=== PATIENT | female | born 1995 ===

== ENCOUNTER 2017-04-24 18:17 | Emergency (ER) | payer SELFPAY ==
[2017-04-24 18:37] VITALS: O2SAT 100
[2017-04-24] MEDS ORDERED: DiphenhydrAMINE 50 mg/ml Inj IVP STA (18:54)
[2017-04-24] MEDS ORDERED: Sodium Chloride 0.9% 500 ML IV STA (18:55)
--- NOTE | 2017-04-24 18:59 | ED PDOC ---
Arrival/HPI - General Chief Complaint: Allergic Reaction Time Seen by Provider: 04/24/17 18:49 Historian: Patient - History of Present Illness Narrative History of Present Illness (Text): 04/24/17 18:55 21 year old female, no pmh, nkda, complaining of itching rash on the whole body after eating cumen about 1.5 hours ago. Pt. stated that she had mild itching rash with cumen before but never pay attention to it. Pt. had the cumen again tonight, started to have itching rash on the body and chest, no numbness or tingling, no fever or chills, no headache or night sweat, no dizziness, no palpitation, no other medical or psychological complaints. Past Medical History - Provider Review Nursing Documentation Reviewed: Yes - Infectious Disease Hx of Infectious Diseases: None - Psychiatric Hx Substance Use: No - Anesthesia Hx Anesthesia: No Family/Social History - Physician Review Nursing Documentation Reviewed: Yes Family/Social History: Unknown Family HX Smoking Status: Never Smoked Hx Alcohol Use: No Hx Substance Use: No Allergies/Home Meds Allergies/Adverse Reactions: Allergies No Known Allergies Allergy (Verified 04/24/17 18:34) Review of Systems - Review of Systems Constitutional: absent: Fatigue, Fevers Eyes: absent: Vision Changes ENT: absent: Hearing Changes Respiratory: absent: SOB, Cough Cardiovascular: absent: Chest Pain Gastrointestinal: absent: Abdominal Pain, Diarrhea, Nausea, Vomiting Skin: Rash, Pruritis. absent: Skin Lesions, Laceration, Abscess, Ulcer, Cellulitis Neurological: absent: Headache, Dizziness Psychiatric: absent: Anxiety, Depression, Suicidal Ideation Physical Exam Vital Signs Reviewed: Yes Vital Signs Temp Pulse Resp BP Pulse Ox 04/24/17 20:15 91 H 17 131/75 100 04/24/17 18:34 97.8 F 76 18 131/80 100 Temperature: Afebrile Blood Pressure: Normal Pulse: Regular Respiratory Rate: Normal Appearance: Positive for: Well-Appearing, Non-Toxic, Comfortable Pain Distress: None Mental Status: Positive for: Alert and Oriented X 3 - Systems Exam Head: Present: Atraumatic, Normocephalic Pupils: Present: PERRL Extroacular Muscles: Present: EOMI Conjunctiva: Present: Normal Mouth: Present: Moist Mucous Membranes Neck: Present: Normal Range of Motion Respiratory/Chest: Present: Clear to Auscultation, Good Air Exchange. No: Respiratory Distress, Accessory Muscle Use Cardiovascular: Present: Regular Rate and Rhythm, Normal S1, S2. No: Murmurs Abdomen: Present: Normal Bowel Sounds. No: Tenderness, Distention, Peritoneal Signs Back: Present: Normal Inspection Upper Extremity: Present: Normal Inspection. No: Cyanosis, Edema Lower Extremity: Present: Normal Inspection. No: Edema Neurological: Present: GCS=15, Speech Normal, Motor Func Grossly Intact, Gait Normal, Memory Normal Skin: Present: Warm, Dry, Rashes (visible resolving hives noted on the chest and bilateral upper extremities. ), Normal Color Psychiatric: Present: Alert, Oriented x 3, Normal Insight, Normal Concentration Medical Decision Making ED Course and Treatment: 04/24/17 19:00 -benadryl/pepcid/solumedrol -NS -Observe and reassess 04/24/17 20:19 -Urine hcg negative. -Symptoms/rash/itching resolved, eating and drinking well, will discharge home. -Discharge home with benadryl, pepcid, prednisone, stay hydrated, avoid strenuous exercise or activity, follow up with your own pmd and bobbin cleaner within 2 days, return to the Emergency room for any new or worsening signs or symptoms. - Medication Orders Current Medication Orders: Discontinued Medications Diphenhydramine HCl (Benadryl) 50 mg IVP STAT STA Stop: 04/24/17 18:55 Last Admin: 04/24/17 19:20 Dose: 50 mg IVP Administration Document 04/24/17 19:20 IT (Rec: 04/24/17 19:20 IT [id number]) Charges for Administration # of IVP Administrations 1 Famotidine (Pepcid) 20 mg IVP STAT STA Stop: 04/24/17 18:55 Last Admin: 04/24/17 19:20 Dose: 20 mg IVP Administration Document 04/24/17 19:20 IT (Rec: 04/24/17 19:20 IT [id number]) Charges for Administration # of IVP Administrations 1 Sodium Chloride (Sodium Chloride 0.9%) 500 mls @ 999 mls/hr IV .Q31M STA Stop: 04/24/17 19:25 Last Admin: 04/24/17 19:21 Dose: 999 mls/hr eMAR Start Stop Document 04/24/17 19:21 IT (Rec: 04/24/17 19:21 IT [id number]) Intravenous Solution Start Date 04/24/17 Start Time 19:21 Methylprednisolone (Solu-Medrol) 125 mg IVP STAT STA Stop: 04/24/17 18:55 Last Admin: 04/24/17 19:20 Dose: 125 mg IVP Administration Document 04/24/17 19:20 IT (Rec: 04/24/17 19:20 IT [id number]) Charges for Administration # of IVP Administrations 1 - PA / PROTECTIVE SERVICES OFFICER / Resident Statement MD/DO has reviewed & agrees with the documentation as recorded. Disposition/Present on Arrival - Present on Arrival Any Indicators Present on Arrival: No History of DVT/PE: No History of Uncontrolled Diabetes: No Urinary Catheter: No History of Decub. Ulcer: No History Surgical Site Infection Following: None - Disposition Have Diagnosis and Disposition been Completed?: Yes Diagnosis: Hives Disposition: HOME/ ROUTINE Disposition Time: 20:19 Patient Plan: Discharge Patient Problems: Current Active Problems Problem Status Onset Hives Acute Condition: IMPROVED Additional Instructions: -Discharge home with benadryl, pepcid, prednisone, stay hydrated, avoid strenuous exercise or activity, follow up with your own pmd and bobbin cleaner within 2 days, return to the Emergency room for any new or worsening signs or symptoms. Prescriptions: DiphenhydrAMINE [Benadryl] 50 mg PO QID PRN #20 cap PRN Reason: Other Famotidine [Pepcid] 20 mg PO BID #14 tab Prednisone 50 mg PO DAILY #5 tab Ref[place]: [facility] [place] - Follow up with primary Gilberto Li MD [Staff Provider] - Follow up with primary Forms: WORK NOTE
[2017-04-24 20:16] VITALS: BP 131/75; PULSE 91; RESP 17
[2017-04-24 20:28] VITALS: TEMP 98
== END 2017-04-24 20:28 | disposition home or self-care (01) ==
LOC: ED 18:17
DX: L50.9 Urticaria, unspecified (principal)
CPT/HCPCS: 96374; 96375; 99283; J1200; J2930; J7040